=== PATIENT | male | born 1985 | race Two or more races ===

== ENCOUNTER 2016-06-13 13:06 | Emergency (ER) | payer MEDICAID, OTHER ==
[~2016-06-13] VITALS: Ht 177.8 cm; Wt 108.9 kg
[2016-06-13 14:33] VITALS: BP 151/99
== END 2016-06-13 15:08 | disposition home or self-care (01) ==
LOC: ER 13:06
DX: S46.911A Strain of unspecified muscle, fascia and tendon at shoulder and upper arm level, right arm, initial encounter (principal); X58.XXXA Exposure to other specified factors, initial encounter; Y93.89 Activity, other specified; Y99.8 Other external cause status; Y92.89 Other specified places as the place of occurrence of the external cause
CPT/HCPCS: 73030

== ENCOUNTER 2016-07-12 22:00 | Emergency (ER) | payer MEDICAID ==
[~2016-07-12] VITALS: Ht 177.8 cm; Wt 108.9 kg
[2016-07-12 23:13] LABS: Basophils # (auto) 0 uL; Basophils % (auto) 0.2 % (0.0-2.0); Eosinophils # (auto) 0.2 uL; Eosinophils % (auto) 2.1 % (0.0-7.0); Hematocrit 47.2 % (41.0-53.0); Hemoglobin 15.7 g/dL (13.5-17.5); Lymphocytes # (auto) 2.1 uL; Lymphocytes % (auto) 19.4 % (10.0-50.0); Mean Corpuscular Hemoglobin 28.2 pg (28.0-32.0); Mean Corpuscular Hgb Conc. 33.2 g/dL (32.0-36.0); Mean Corpuscular Volume 85.1 fL (80.0-100.0); Mean Platelet Volume 9.3 fL (7.4-10.4); Monocytes # (auto) 0.8 uL; Monocytes % (auto) 7.2 % (0.0-12.0); Neutrophils # (auto) 7.8 uL; Neutrophils % (auto) 71.1 % (37.0-80.0); Platelet Count (auto) 291 10^3/uL (140-450); Red Cell Distribution Width 12.7 % (11.6-16.0); White Blood Cell 10.9 10^3/uL (4.4-10.8)
[2016-07-12 23:32] LABS: Albumin 4.5 g/dL (3.4-5.0); Anion Gap 7 (5-15); Blood Urea Nitrogen 12 mg/dL (7-18); Carbon Dioxide 29 mmol/L (21-32); Chloride 107 mmol/L (98-107); Glucose 70 mg/dL (74-106); Potassium 4.3 mmol/L (3.5-5.1); Sodium 143 mmol/L (136-145)
[2016-07-12 23:34] LABS: Aspartate Aminotransferase 28 U/L (15-37); BUN/Creatinine Ratio 12.4; GFR African American 117 mL/min; GFR Non-African American 97 mL/min
[2016-07-12 23:39] LABS: Alkaline Phosphatase 85 U/L (45-117); Bilirubin, Total 0.3 mg/dL (0.2-1.0); INR 0.99 (0.9-1.15); Partial Thromboplastin Time 28.6 sec (22.64-33.71); Prothrombin Time 10.7 sec (9.37-12.3); Total Protein 7.5 g/dL (6.4-8.2)
[2016-07-13] MEDS ORDERED: LORazepam 0.5 MG TAB ONE (05:14)
[2016-07-13] MEDS ORDERED: LORazepam 0.5 MG TAB PO ONE (05:15)
[2016-07-13] MEDS ORDERED: IBUPROFEN 600 MG TAB PO ONE (05:15)
[2016-07-13 05:22] LABS: Urine RBC None Seen /hpf (0 - 3)
[2016-07-13 05:29] LABS: Urine Bilirubin Negative (Negative); Urine Blood Negative /uL (Negative); Urine Color Yellow (Yellow); Urine Glucose Normal (Normal); Urine Ketone Negative (Negative); Urine Mucus FEW (None Seen); Urine Nitrite Negative (Negative); Urine Urobilinogen Normal (Negative); Urine pH 5.5 (5.0-8.0)
[2016-07-13 10:05] VITALS: BP 168/88
== END 2016-07-13 10:41 | disposition home or self-care (01) ==
LOC: ER 22:14
DX: F41.9 Anxiety disorder, unspecified (principal); R07.89 Other chest pain; G47.00 Insomnia, unspecified; I10 Essential (primary) hypertension; E66.9 Obesity, unspecified; Z68.34 Body mass index [BMI] 34.0-34.9, adult
CPT/HCPCS: 36415; 71020; 80053; 80307; 81001; 84484; 85025; 85610; 85652; 85730; 93005